=== PATIENT | male | born 1965 | race Two or more races ===

== ENCOUNTER 2021-02-11 09:04 | Outpatient (REF) | payer MEDICAID, SELFPAY ==
--- NOTE | ~2021-02-11 | XR_ITS ---
EXAMINATION: XR SHOULDER, LEFT CLINICAL INFORMATION: Pain. COMPARISON: None TECHNIQUE: AP external rotation, Grashey, scapular Y, and axillary views of the left shoulder. FINDINGS: There is no visible acute fracture, dislocation subluxation. There is degenerative arthritic inferior spurring left AC joint. The soft tissues are normal. XR/XR shoulder LT min 2V IMPRESSION: Mild degenerative arthritic changes left AC joint. No visible acute fracture or dislocation seen.
== END 2021-02-11 09:05 | disposition home or self-care (01) ==
LOC: HO.XRAY 09:04
PROVIDERS: PCP Internal Medicine Geriatric Medicine; Visit Provider Physician Assistant
DX: M75.102 Unspecified rotator cuff tear or rupture of left shoulder, not specified as traumatic (principal)
CPT/HCPCS: 20610; 73030; 99202; J1040

== ENCOUNTER 2022-02-15 09:28 | Outpatient (REF) | payer MEDICAID, SELFPAY ==
--- NOTE | ~2022-02-15 | XR_ITS ---
EXAMINATION: BILATERAL SHOULDER X-RAY CLINICAL INFORMATION: Pain COMPARISON: Previous x-ray November 2016 TECHNIQUE: 4 views of each shoulder FINDINGS: Right: Bone alignment is normal. No fracture or dislocation is seen. The glenohumeral joint is normal. There is arthritis at the acromioclavicular joint. Soft tissues are unremarkable. Left: Bone alignment is normal. No fracture or dislocation is seen. The glenohumeral joint is normal. There is arthritis at the acromioclavicular joint. Soft tissues are unremarkable. XR/XR shoulder RT min 2V IMPRESSION: Arthritis at the acromioclavicular joints.
--- NOTE | ~2022-02-15 | XR_ITS ---
EXAMINATION: BILATERAL SHOULDER X-RAY CLINICAL INFORMATION: Pain COMPARISON: Previous x-ray November 2016 TECHNIQUE: 4 views of each shoulder FINDINGS: Right: Bone alignment is normal. No fracture or dislocation is seen. The glenohumeral joint is normal. There is arthritis at the acromioclavicular joint. Soft tissues are unremarkable. Left: Bone alignment is normal. No fracture or dislocation is seen. The glenohumeral joint is normal. There is arthritis at the acromioclavicular joint. Soft tissues are unremarkable. XR/XR shoulder LT min 2V IMPRESSION: Arthritis at the acromioclavicular joints.
== END 2022-02-15 09:29 | disposition home or self-care (01) ==
LOC: HO.XRAY 09:28
PROVIDERS: PCP Internal Medicine Geriatric Medicine; Visit Provider Physician Assistant
DX: M25.511 Pain in right shoulder (principal); M25.512 Pain in left shoulder
CPT/HCPCS: 73030

== ENCOUNTER → 2023-01-19 10:18 | Outpatient (BNVA) | payer MEDICAID, SELFPAY | PROVIDERS: PCP Internal Medicine Geriatric Medicine; Visit Provider Nurse Practitioner | DX: Z01.818 Encounter for other preprocedural examination (principal) | CPT/HCPCS: 99202 ==

== ENCOUNTER 2023-11-30 08:04 | Outpatient (REF) | payer MEDICAID, SELFPAY ==
[2023-11-30 12:18] LABS: Alanine Aminotransferase 26 U/L (0-40); Albumin Level 4.5 g/dL (3.5-5.0); Alkaline Phosphatase 109 U/L (39-117); Anion Gap 13 (12-20); Aspartate Amino Transferase 23 U/L (5-37); Bilirubin Total 0.4 mg/dL (0.0-1.0); Blood Urea Nitrogen 14 mg/dL (9-16); Calcium 9.3 mg/dL (8.4-10.2); Carbon Dioxide 30 mmol/L (22-29); Chloride 102 mmol/L (96-108); Estimated Glomerular Filt Rate > 60; Glucose Random 108 mg/dL (60-115); Potassium 3.9 mmol/L (3.3-5.1); Sodium 141 mmol/L (135-145); Total Protein 7.4 g/dL (6.5-8.0)
== END 2023-11-30 08:05 | disposition home or self-care (01) ==
LOC: HO.HHCL 08:04
PROVIDERS: Visit Provider Internal Medicine Geriatric Medicine
DX: I10 Essential (primary) hypertension (principal); E78.00 Pure hypercholesterolemia, unspecified
CPT/HCPCS: 36415; 80053

== ENCOUNTER 2023-12-20 12:47 | Outpatient (REF) | payer MEDICAID, SELFPAY ==
--- NOTE | ~2023-12-20 | XR_ITS ---
EXAMINATION: XR LUMBAR SPINE XR RIGHT ELBOW XR LEFT ELBOW CLINICAL INFORMATION: Low back pain at multiple sites, bilateral medial epicondylitis of elbows. TECHNIQUE: 4 views of the lumbar spine. AP and lateral views of the right elbow. AP and 2 lateral views of the left elbow. COMPARISON: Lumbar spine October 03, 2011. FINDINGS: LUMBAR SPINE: Mild dextroscoliosis of the lumbar spine. Degenerative changes and very limited images of the bilateral hips. Facet arthritis in the lower lumbar spine. Minimal grade 1 anterolisthesis of L4 on L5 with moderate loss of disc space height. RIGHT ELBOW: No significant joint effusion. Alignment preserved. No displaced fracture appreciated. LEFT ELBOW: No significant joint effusion. Alignment preserved. No displaced fracture appreciated. Mild hypertrophic change along the medial epicondyle. Tiny olecranon spur with faint soft tissue ossific/calcific densities of indeterminate age and significance. XR/XR elbow LT 2V IMPRESSION: 1. Moderate degenerative disc disease at L4-L5. 2. Facet arthritis in the lower lumbar spine. 3. Mild hypertrophic change along the medial epicondyle of the left elbow. Tiny olecranon spur with faint soft tissue ossific/calcific densities of indeterminate age and significance. 4. Additional imaging with CT scan or MRI should be considered for better visualization as these modalities are much more sensitive for detection of fracture or other underlying pathology.
--- NOTE | ~2023-12-20 | XR_ITS ---
EXAMINATION: XR LUMBAR SPINE XR RIGHT ELBOW XR LEFT ELBOW CLINICAL INFORMATION: Low back pain at multiple sites, bilateral medial epicondylitis of elbows. TECHNIQUE: 4 views of the lumbar spine. AP and lateral views of the right elbow. AP and 2 lateral views of the left elbow. COMPARISON: Lumbar spine October 03, 2011. FINDINGS: LUMBAR SPINE: Mild dextroscoliosis of the lumbar spine. Degenerative changes and very limited images of the bilateral hips. Facet arthritis in the lower lumbar spine. Minimal grade 1 anterolisthesis of L4 on L5 with moderate loss of disc space height. RIGHT ELBOW: No significant joint effusion. Alignment preserved. No displaced fracture appreciated. LEFT ELBOW: No significant joint effusion. Alignment preserved. No displaced fracture appreciated. Mild hypertrophic change along the medial epicondyle. Tiny olecranon spur with faint soft tissue ossific/calcific densities of indeterminate age and significance. XR/XR elbow RT 2V IMPRESSION: 1. Moderate degenerative disc disease at L4-L5. 2. Facet arthritis in the lower lumbar spine. 3. Mild hypertrophic change along the medial epicondyle of the left elbow. Tiny olecranon spur with faint soft tissue ossific/calcific densities of indeterminate age and significance. 4. Additional imaging with CT scan or MRI should be considered for better visualization as these modalities are much more sensitive for detection of fracture or other underlying pathology.
--- NOTE | ~2023-12-20 | XR_ITS ---
EXAMINATION: XR LUMBAR SPINE XR RIGHT ELBOW XR LEFT ELBOW CLINICAL INFORMATION: Low back pain at multiple sites, bilateral medial epicondylitis of elbows. TECHNIQUE: 4 views of the lumbar spine. AP and lateral views of the right elbow. AP and 2 lateral views of the left elbow. COMPARISON: Lumbar spine October 03, 2011. FINDINGS: LUMBAR SPINE: Mild dextroscoliosis of the lumbar spine. Degenerative changes and very limited images of the bilateral hips. Facet arthritis in the lower lumbar spine. Minimal grade 1 anterolisthesis of L4 on L5 with moderate loss of disc space height. RIGHT ELBOW: No significant joint effusion. Alignment preserved. No displaced fracture appreciated. LEFT ELBOW: No significant joint effusion. Alignment preserved. No displaced fracture appreciated. Mild hypertrophic change along the medial epicondyle. Tiny olecranon spur with faint soft tissue ossific/calcific densities of indeterminate age and significance. XR/XR lumbar spine 2-3V IMPRESSION: 1. Moderate degenerative disc disease at L4-L5. 2. Facet arthritis in the lower lumbar spine. 3. Mild hypertrophic change along the medial epicondyle of the left elbow. Tiny olecranon spur with faint soft tissue ossific/calcific densities of indeterminate age and significance. 4. Additional imaging with CT scan or MRI should be considered for better visualization as these modalities are much more sensitive for detection of fracture or other underlying pathology.
== END 2023-12-20 12:48 | disposition home or self-care (01) ==
LOC: HO.HHCX 12:47
PROVIDERS: Visit Provider Internal Medicine Geriatric Medicine
DX: M54.50 Low back pain, unspecified (principal); M77.01 Medial epicondylitis, right elbow; M77.02 Medial epicondylitis, left elbow
CPT/HCPCS: 72100; 73070

== ENCOUNTER → 2023-12-28 07:47 | Day surgery (SDC) | payer MEDICAID, SELFPAY ==
--- NOTE | 2023-12-27 08:23 | HO.ANESPROP2 ---
HPI - Anesthesia Eval Consult details Narrative: 58yo M for Colonoscopy PMFSH Active Problems Active Problems: All Active Problems Colon cancer screening (Acute) Pre-op examination (Acute) Deviated septum (Acute) Chronic sinusitis (Acute) Smoker (Acute) PTSD (post-traumatic stress disorder) (Acute) Depression (Acute) Chronic pain syndrome (Acute) Methadone maintenance therapy patient (Acute) Obesity (Acute) Painful arc syndrome of left shoulder (Acute) Past Medical History Medical History High cholesterol HTN (hypertension) Family History Family History Mother Stomach cancer Father Lung cancer Surgical History Surgical History H/O bilateral inguinal hernia repair H/O colonoscopy Social History Social History (System 12/09/23 @ 09:38 by Flower Kraus) Alcohol intake: never Patient Tobacco Use Status: Current someday Tobacco user Current occupational status: disabled Current occupation: Right Handed Meds Allergies Allergy/AdvReac Type Severity Reaction Status Date / Time No Known Allergies Allergy Verified 12/09/23 09:38 Home Medications ?Medication ?Instructions ?Recorded ?Confirmed ?Last Taken ?Type amlodipine 10 mg tablet 10 mg PO DAILY 01/19/23 Unknown History atorvastatin 40 mg tablet 40 mg PO DAILY 01/19/23 Unknown History lisinopril 40 mg tablet 40 mg PO DAILY 01/19/23 Unknown History Assessment and Plan Assessment Anesthesia Assessment: Chart Reviewed
--- NOTE | 2023-12-28 08:08 | PC.NURSE ---
pt stated to rn he used herion yesterday last night 1 bag and uses 3-[address] george at bedside pt being cancelled pt angry and left cursing security aware
== END ==
PROVIDERS: Visit Provider Internal Medicine Gastroenterology
DX: Z12.11 Encounter for screening for malignant neoplasm of colon (principal); Z53.8 Procedure and treatment not carried out for other reasons; F11.90 Opioid use, unspecified, uncomplicated

== ENCOUNTER 2024-03-13 14:44 | Outpatient (REF) | payer MEDICAID, SELFPAY ==
--- NOTE | ~2024-03-13 | XR_ITS ---
EXAMINATION: XR LUMBOSACRAL SPINE CLINICAL INFORMATION: Pain COMPARISON: CT abdomen and pelvis 09/28/2019 TECHNIQUE: Three views of the lumbosacral spine. FINDINGS: The vertebral bodies and posterior elements are normal. The disc spaces are preserved. Minimal anterolisthesis of L4 on L5.. The paraspinal soft tissues are normal. Mild atherosclerotic calcification in the abdominal aorta. XR/XR lumbar spine 2-3V IMPRESSION: Minimal anterolisthesis of L4 on L5.
--- NOTE | ~2024-03-13 | XR_ITS ---
EXAMINATION: XR KNEE, RIGHT CLINICAL INFORMATION: Months of bilateral knee pain and problems walking COMPARISON: None available. TECHNIQUE: Four views of the right knee. FINDINGS: No fracture or joint effusion. Spurring in the tibial tuberosity. Alignment is anatomic. Joint spaces are maintained. No abnormal soft tissue calcification. XR/XR knee RT 4V IMPRESSION: Spurring in the tibial tuberosity. No acute process.
== END 2024-03-13 14:45 | disposition home or self-care (01) ==
LOC: HO.HHCX 14:44
PROVIDERS: Visit Provider Internal Medicine Geriatric Medicine
DX: M54.50 Low back pain, unspecified (principal); G89.29 Other chronic pain; M25.561 Pain in right knee
CPT/HCPCS: 72100; 73564

== ENCOUNTER 2024-03-25 15:52 | Emergency (ER) | payer MEDICAID, SELFPAY ==
--- NOTE | ~2024-03-25 | CT_ITS ---
EXAMINATION: CT FACIAL BONES WITHOUT CONTRAST CLINICAL INFORMATION: Recurrent sinusitis. COMPARISON: Sinus x-rays September 2018. CT scan August 2016. TECHNIQUE: CT scan of the sinuses performed, reconstruction imaging performed at the acquisition workstation. This CT examination was performed using dose optimization techniques as appropriate, variously including the following: *Automated exposure control *Adjustment of mA and/or kV according to patient size (this includes techniques or standardized protocols for targeted exams where dose is matched to indication/reason for exam; i.e. extremities or head) *Use of iterative reconstruction technique DLP: 187 mGy-cm. FINDINGS: There is mild mucosal thickening of the maxillary sinuses bilaterally. Small mucosal polyps present along the dependent portion of the left maxillary sinus. Small mucosal polyp in the medial aspect of the right maxillary sinus. Mild mucosal thickening of the right ethmoid sinuses. Deviation of the septum to the right. No fractures. Mastoid air cells are clear. Orbits are normal. No lymphadenopathy. Surrounding muscles are normal. Incidental note is made of spondylosis of the upper cervical spine, with multilevel bilateral facet arthrosis noted. CT/CT facial bones wo IV con IMPRESSION: Mild chronic sinus disease. No acute abnormality. Incidental note made of spondylosis of the partially visualized cervical spine.
--- NOTE | ~2024-03-25 | CT_ITS ---
EXAMINATION: CT HEAD WITHOUT CONTRAST CLINICAL INFORMATION: Recurrent sinusitis COMPARISON: CT scan of the head August 2016 TECHNIQUE: Contiguous axial imaging was performed from the skull base to vertex without intravenous administration of contrast. This CT examination was performed using dose optimization techniques as appropriate, variously including the following: *Automated exposure control *Adjustment of mA and/or kV according to patient size (this includes techniques or standardized protocols for targeted exams where dose is matched to indication/reason for exam; i.e. extremities or head) *Use of iterative reconstruction technique DLP: 706 mGy-cm FINDINGS: There is no intracranial mass hemorrhage or cerebral edema. Ventricles and basal cisterns normal. Scalp: Unremarkable. No fracture. Mild mucosal thickening of the right maxillary and right ethmoid sinus similar to prior. Mastoid air cells clear. CT/CT head/brain wo IV con IMPRESSION: No acute intracranial pathology. Mild mucosal thickening of the sinuses
[2024-03-25 16:15] VITALS: BP 114/71; PULSE 77; RESP 18; TEMP 36.6; O2SAT 96; BMI 30.8
[2024-03-25 16:47] LABS: IDNOW Serial# 08D9AD1C; Strep A Nucleic Acid Negative (Negative)
--- NOTE | 2024-03-25 16:48 | ED_ITS ---
HPI - Headache General Chief Complaint: Headache Stated Complaint: head pain and sinus pressure Time Seen by Provider: 03/25/24 16:25 Source: patient Mode of arrival: ambulatory Limitations: no limitations History of Present Illness ED Provider: Abby Guerra APRN HPI Narrative: 59 yo male with history of chronic sinusitis, PTSD, depression, chronic pain here with complaints of intermittent symptoms of sinus pressure/pain for years worsened over the last few months despite several course of antibiotics. Has been sniffing heroin d/t pain. No fevers, chills. +APONTE/pressure. Intermittently using nasal spray, OTC allergy meds. No shortness of breath, chest pain, neck pain/stiffness, vomiting, diarrhea, sore throat, ear pain. Related Data Home Medications ?Medication ?Instructions ?Recorded ?Confirmed amlodipine 10 mg tablet 10 mg PO DAILY 01/19/23 atorvastatin 40 mg tablet 40 mg PO DAILY 01/19/23 lisinopril 40 mg tablet 40 mg PO DAILY 01/19/23 Previous Rx's ?Medication ?Instructions ?Recorded amoxicillin 875 mg-potassium 1 tab PO BID #14 tabs 03/25/24 clavulanate 125 mg tablet fluticasone propionate 50 2 spray intranasal DAILY #16 grams 03/25/24 mcg/actuation nasal spray,suspension (Flonase Allergy Relief) loratadine 10 mg tablet (Claritin) 10 mg PO DAILY #30 tabs 03/25/24 Allergies Allergy/AdvReac Type Severity Reaction Status Date / Time No Known Allergies Allergy Verified 03/25/24 16:21 Review of Systems Review of Systems: Yes all other systems are reviewed and are negative Constitutional: Constitutional: Reports no additional constitutional complaints, Denies body ache(s), Denies chills, Denies fever(s), Reports headache(s) and Denies weakness Eyes: Eyes: Reports no additional eye complaints and Denies change in vision ENT: Reports system reviewed and no additional complaints, except as docu mented, Denies dizziness, Reports headache(s), Denies nasal congestion, Denies nasal discharge, Denies neck pain, Reports sinus pain and Reports sinus pressure Cardiovascular: Cardiovascular: Reports no additional cardiovascular complaints, Denies chest pain, Denies leg edema and Denies dyspnea Respiratory: Respiratory: Reports no additional respiratory complaints, Denies cough and Denies dyspnea Gastrointestinal: Gastrointestinal: Reports no additional gastrointestinal complaints, Denies abdominal pain, Denies diarrhea, Denies nausea and Denies vomiting Genitourinary: Genitourinary: Denies urinary incontinence Musculoskeletal: Musculoskeletal: Reports no additional musculoskeletal complaints, Denies back pain, Denies arthralgias, Denies joint swelling, Denies neck pain, Denies numbness and Denies tingling Integumentary/Breasts: Skin/Breast: Reports system reviewed and no additional complaints, except as docu and Denies rash Neurologic: Reports system reviewed and no additional complaints, except as documented, Denies Abnormal speech present, Denies dizziness, Reports headache(s), Denies numbness, Denies tingling and Denies weakness PMFSH Past Medical History Attestation statement: The following information was validated with the patient. Source: old records reviewed and nursing notes reviewed Medical History High cholesterol HTN (hypertension) Surgical History H/O bilateral inguinal hernia repair H/O colonoscopy Family History Family History Mother Stomach cancer Father Lung cancer Social History Social History Alcohol intake: never Patient Tobacco Use Status: Current someday Tobacco user Advance Directives: No Advance Directives Information Provided: No Do you have a plan to hurt others: No Plan Current occupational status: disabled Current occupation: Right Handed Physical Exam Vital Signs: Vital Signs: Last Vital Signs Temp 98.0 F 03/25/24 21:00 Pulse 99 03/25/24 21:00 Resp 18 03/25/24 21:00 BP 112/79 03/25/24 21:00 Pulse Ox 100 03/25/24 21:00 O2 Del Method Room Air 03/25/24 21:00 BMI result Body Mass Index 30.8 Const: General: cooperative, healthy appearing, comfortable and no acute distress Orientation/consciousness: patient oriented x3 Limitations: no limitations HEENT: Head: Yes normal to inspection Ears: hearing grossly normal bilaterally and TM's normal bilaterally General nose exam: Normal external nose present Face and sinus: Yes normal facial exam, Yes sinus tenderness and Yes other (nasal turbinate erythema/swelling ) Mouth: Normal oral and palatal mucosa present Throat: Yes posterior oropharynx normal, Yes tonsils normal and Yes uvula midline Eyes: General: appearance normal, both eyes and all related structures Pupils: Equal, round and reactive pupils present Neck: Neck: Yes normal visual inspection, Yes full ROM, Yes no lymphadenopathy and Yes no meningeal signs Chest: Chest palpation & inspection: normal inspection of the chest Resp: Effort & Inspection: normal respiratory effort Auscultation: clear to auscultation bilaterally Cardio: Rate: regular rate Rhythm: regular rhythm Peripheral pulses: Peripheral pulses 2+ throughout GI: Inspection: Yes normal to inspection Palpation (GI): Soft to palpation and nontender Auscultation: normal bowel sounds Back/Spine/Pelvis: Thoracic/Lumbar Spine: thoracic and lumbar spine normal to inspection Skin: General skin exam: no rashes or lesions noted Neuro: General: patient oriented x3, no meningeal signs, no focal motor deficits and normal sensation to monofilament Cranial nerves: Yes Equal, round and reactive pupils present Cognition (Neuro): normal cognition Speech: No Abnormal speech present Gait exam (Neuro): Normal gait present Motor exam (neuro): 5/5 motor strength present throughout Extrem: General: Yes normal to inspection Course Course Course Narrative: 1999-Sign out to Jerrod HOBSON pending CT results Reevaluation(s) Reevaluation #1: Patient would like to leave. Facial CT scan results did not come back. Only head CT scan was done with states right maxillary ethmoid sinus thickening confi rming sinusitis. There was no mention on documentation of description of facial bones. Patient informed to wait for official facial CT reading to make sure no fractures. Patient signed out against medical advice and not believe he has a fracture since there was no trauma. Patient explained risk of disability infection and from jaw fracture but patient would like to be discharged before facial CT scan reading. Time: 20:53 Medical Decision Making Medical Decision Making MDM Narrative: 59 yo male with history of chronic sinusitis, PTSD, depression, chronic pain here with complaints of intermittent symptoms of sinus pressure/pain for years worsened over the last few months despite several course of antibiotics. Has been sniffing heroin d/t pain. No fevers, chills. +APONTE/pressure. Intermittently using nasal spray, OTC allergy meds. No shortness of breath, chest pain, neck pain/stiffness, vomiting, diarrhea, sore throat, ear pain. +bilateral nasal turbinate, erythema and swelling Sinus TTP Will obtain viral testing, strep testing, CT Differential Diagnosis Differential Diagnoses: The differential diagnosis associated with the presentation includes Sinusitis, viral infection Admission/Observation Consideration of admission/observation: Escalation of care including admission/observation considered Lab Data MDM Lab Attestation statement: I reviewed the patient's lab results. Labs: Lab Results 03/25/24 03/25/24 Range/Units 16:32 16:33 Influenza Type A (PCR) NEGATIVE (Negative) Influenza Type B (PCR) NEGATIVE (Negative) RSV RNA Qual (PCR) NEGATIVE (Negative) SARS-CoV-2 RNA (RT-PCR) NEGATIVE (Negative) S. pyogenes GrpA SILAS Negative (Negative) Independent Interpretation I performed an independent interpretation of an: CT Scan Radiology Impression Discussion of test interpretation with radiology: I have reviewed the radiologist's reading. Discharge Plan Discharge Clinical Impression: Sinusitis Patient Disposition: Left Against Medical Advice Instructions: Sinusitis (ED) Additional Instructions: Testing for strep, flu, covid and rsv are negative Your CT scan shows XX Prescriptions: New amoxicillin-pot clavulanate 875-125 mg tablet 1 tab PO BID Qty: 14 0RF fluticasone propionate [Flonase Allergy Relief] 50 mcg/actuation spray,suspension 2 spray intranasal DAILY Qty: 16 0RF Rx Instructions: administer into each nostril loratadine [Claritin] 10 mg tablet 10 mg PO DAILY Qty: 30 0RF No Action lisinopril 40 mg tablet 40 mg PO DAILY atorvastatin 40 mg tablet 40 mg PO DAILY amlodipine 10 mg tablet 10 mg PO DAILY Referrals: Moris Bates MD [Primary Care Provider] - 1 week Stand Alone Forms: Against Medical Advice Interventions: ED Discharge Assessment Last Done: 03/25/24 21:00 Discharge Date/Time: 03/25/24 21:01 Print Language: Latvian
[2024-03-25 17:36] LABS: Influenza A PCR NEGATIVE (Negative); Influenza B PCR NEGATIVE (Negative); Resp Syncy Virus RNA Qual PCR NEGATIVE (Negative); SARS COV2 PCR INHOUSE NEGATIVE (Negative)
[2024-03-25 17:44] VITALS: BP 112/79; PULSE 99; RESP 18; TEMP 36.7; O2SAT 100
[2024-03-25 21:00] VITALS: BP 112/79; PULSE 99; RESP 18; TEMP 36.7; O2SAT 100
== END 2024-03-25 21:01 | disposition left against medical advice (07) ==
PROVIDERS: Nurse Practitioner Family; Emergency Provider Emergency Medicine Emergency Medical Services; PCP Internal Medicine Geriatric Medicine
DX: J32.9 Chronic sinusitis, unspecified (principal); R51.9 Headache, unspecified; F11.10 Opioid abuse, uncomplicated; F17.210 Nicotine dependence, cigarettes, uncomplicated; Z03.818 Encounter for observation for suspected exposure to other biological agents ruled out
CPT/HCPCS: 0241U; 70450; 70486; 87651; 99283

== ENCOUNTER 2024-03-26 14:33 | Outpatient (AMB) | payer MEDICAID, SELFPAY ==
--- NOTE | 2024-03-26 14:42 | A.OFFVIS_ITS ---
Vital Signs 03/26/24 14:53 Height 5 ft 6 in Weight 192 lb 2 oz BMI 31.0 BP 110/74 Blood Pressure Location Lt brachial Position Sitting Respiration 16 Pulse 79 Pulse Source Pulse Oximeter Pulse Oximetry (%) 97 Oxygen Delivery Method Room Air Intake Visit Reasons: Chronic Midline Low Back Pain w/o Sciatica Intake Note: Patient comes in for initial visit was referred by primary care. Reports pain 7/10. Allergies No Known Allergies Allergy (Verified 03/26/24 14:55) HPI Comments Details: Balaji is very pleasant 59 years old gentleman who presents in my office with complains of severe pain in projection of the lower lumbar spine. He reports his pain today is 9/10. He reports that sitting aggravates his pain equally as well as walking as well as standing and laying down. Pain radiates to the right leg. He reports that he can not sleep normally he can do activities of daily living, he more or less can take care of himself, he can not function normally. He is on disability for mental illness he reports bipolar disorder. He reports that movements aggravate his pain. He reports that heat helps his pain better. He reports most severe pain in the lower back. In terms of tissue damage he reports his pain is pinching, cramping, crushing, tugging, pulling, wrenching, tingling, stinging, spreading, radiating, piercing, tight, squeezing, tearing sensation. In the past he tried ibuprofen Tylenol and aspirin nothing helps for his pain also reports that opioid medications including tramadol and oxycodone does not help his pain. He reported MRI of his lumbar spine which was done many years ago. He does not remember how long ago it was but more like most likely it was more than 5 years ago. He had extensive physical therapy 7 years ago he reports aggravation of the pain with physical therapy. He was subject of several nerve blocks and procedures with [facility] in [place]. He reports those procedures were very helpful for his pain control. His past medical history significant for bipolar disorder and hypertension. His past surgical history significant for 4 hernia repairs 1st was [place] in [place] and after that in [place] in 2000 as well and after that again in [place] in 2012. He reports that he sporadically smokes cigarettes he denies drinking alcohol he reports caffeinated beverages he denies recreational drugs. [facility] Medical History High cholesterol HTN (hypertension) Surgical History H/O bilateral inguinal hernia repair H/O colonoscopy Family History Mother Stomach cancer Father Lung cancer Social History Alcohol intake: never Patient Tobacco Use Status: Current someday Tobacco user Current occupational status: disabled Current occupation: Right Handed Review of Systems Const Denies fatigue, Denies fever(s), Denies night sweats, Denies poor appetite and Denies weight loss ENT Reports Normal hearing present Card Reports no additional complaints Resp Reports no additional complaints GI Reports no additional complaints Musc Reports as per HPI Neuro Reports Normal hearing present, Denies Abnormal speech present, Denies confusion and Denies Sensory deficit (Neuro) Psych Reports anxiety, Denies confusion and Reports depression Endo Denies fatigue Physical Exam Vital Signs: Last Vital Signs Pulse 79 03/26/24 14:53 Resp 16 03/26/24 14:53 BP 110/74 03/26/24 14:53 Pulse Ox 97 03/26/24 14:53 Oxygen Delivery Method Room Air 03/26/24 14:53 BMI result Body Mass Index 31.0 Const General: no acute distress; No confusion Orientation/consciousness: patient oriented x3 and No confusion Eyes General: appearance normal, both eyes and all related structures Pupils: Equal, round and reactive pupils present EOM: EOMs intact bilaterally Neck Neck: Yes full ROM Chest Chest palpation & inspection: normal inspection of the chest Resp Effort & Inspection: normal respiratory effort, able to speak in complete sentences, normal respiratory pattern, no audible wheezes and no cough Cardio Jugular venous distension: no JVD GI Inspection: Yes normal to inspection Back/Spine/Pelvis Other: He is able to stand on bilateral tiptoes with difficulty as well as able to stand on bilateral heels also with difficulty. SLR is positive bilaterally. Pito test is negative bilaterally. Valsalva maneuver is positive for pain increase. Lessegue test is positive bilaterally. Neuro General: patient oriented x3, gait normal and No confusion Cranial nerves: Yes CN's II-XII intact bilaterally, Yes Equal, round and reactive pupils present, Yes Normal hearing present and Yes Ability to bilaterally elevate shoulders present Speech: No Abnormal speech present Gait exam (Neuro): Normal gait present Motor exam (neuro): 5/5 motor strength present throughout Sensory Exam: No Sensory deficit (Neuro) Extrem General: No pedal edema Psych Speech and movement: Normal speech and movement present Affect: normal affect Attitude: cooperative Thought process: Normal thought process present Thought content: Normal thought content present Insight: Good insight present (Psych) Judgement: Good judgement present (Psych) Assessment & Plan Assessment & Plan (1) Radiculopathy, lumbar region: Code(s): M54.16 - Radiculopathy, lumbar region Category: Medical (2) Disc degeneration, lumbar: Code(s): M51.36 - Other intervertebral disc degeneration, lumbar region Category: Medical (3) Spondylosis of lumbar joint: Code(s): M47.816 - Spondylosis without myelopathy or radiculopathy, lumbar region Category: Medical (4) Chronic pain syndrome: Code(s): G89.4 - Chronic pain syndrome Category: Medical (5) Chronic lumbar pain: Code(s): M54.50 - Low back pain, unspecified; G89.29 - Other chronic pain Category: Medical Plan This patient is suffering from radiculopathy of the lumbar spine. I offered him to go for MRI of the lumbar spine. We will schedule appointment in 6 weeks. I will evaluate his MRI in probably offer him some injections and or procedures to help his pain. Due to his bipolar disorder/depression he might not be appropriate candidate for neuromodulation but that remains to be seen if it is required. Orders: Orders MR lumbar spine wo con Today M47.816 - Spondylosis without myelopathy or radiculopathy, lumbar region, M51.36 - Other intervertebral disc degeneration, lumbar region, M54.16 - Radiculopathy, lumbar region Patient Instructions: I here by testify that I spent 45 minutes in conversation with this patient as well as planning his care and organizing this note. Coding Level of Care Code New Pt Level 4 (71729) Diagnoses Radiculopathy, lumbar region M54.16 Disc degeneration, lumbar M51.36 Spondylosis of lumbar joint M47.816 Chronic pain syndrome G89.4 Chronic lumbar pain M54.50; G89.29
[2024-03-26 14:53] VITALS: BP 110/74; PULSE 79; RESP 16; O2SAT 97; BMI 31.0
== END 2024-03-26 15:08 | disposition home or self-care (01) ==
PROVIDERS: PCP Internal Medicine Geriatric Medicine; Referring Provider Internal Medicine Geriatric Medicine; Visit Provider Anesthesiology
DX: M54.16 Radiculopathy, lumbar region (principal); M51.36 Other intervertebral disc degeneration, lumbar region; M47.816 Spondylosis without myelopathy or radiculopathy, lumbar region; G89.4 Chronic pain syndrome; M54.50 Low back pain, unspecified; G89.29 Other chronic pain
CPT/HCPCS: 99204

== ENCOUNTER → 2024-03-26 14:41 | Outpatient (BNVA) | payer MEDICAID, SELFPAY | PROVIDERS: PCP Internal Medicine Geriatric Medicine; Referring Provider Internal Medicine Geriatric Medicine; Visit Provider Anesthesiology | DX: M47.26 Other spondylosis with radiculopathy, lumbar region (principal); M51.36 Other intervertebral disc degeneration, lumbar region; G89.4 Chronic pain syndrome | CPT/HCPCS: 99202 ==

== ENCOUNTER → 2024-05-20 11:04 | Outpatient (BNV) | payer MEDICAID, SELFPAY | PROVIDERS: PCP Internal Medicine Geriatric Medicine; Visit Provider Radiology Diagnostic Radiology | DX: M47.896 Other spondylosis, lumbar region (principal) | CPT/HCPCS: 72148 ==

== ENCOUNTER 2024-05-20 11:05 | Outpatient (REF) | payer MEDICAID, SELFPAY ==
--- NOTE | ~2024-05-20 | MR_ITS ---
EXAMINATION: MR LUMBAR SPINE WITHOUT CONTRAST CLINICAL INFORMATION: Spondylosis. Bilateral lower extremity pain, weakness and numbness. COMPARISON: Correlated to MRI report dated November 27, 2009. TECHNIQUE: MRI of the lumbar spine was obtained using routine sequences without contrast. FINDINGS: Submitted for interpretation on 06/19/2024. [Last Rib-bearing vertebra labeled T12. There is an extruded disc with cephalad migration beneath the posterior longitudinal ligament at T11-12 resulting in ventral deformity of the spinal cord, not fully evaluated. Bone marrow STIR signal in the posterior elements/lamina and pars interarticularis, L4-5 levels. Multilevel marginal osteophyte formation and disc desiccation more conspicuous at L4-5. Multilevel Schmorl's nodes. Grade 1 anterolisthesis, L4-5. Intrinsic hyperintense T1 bone lesion, L2 vertebra. Conus medullaris ends at inferior endplate of L1 with normal signal. T12-L1: No compression upon neural elements. L1-2: No compression upon neural elements. L2-3: Broad-based disc bulging. Facet joint hypertrophy. No compression upon the neural elements. L3-4: Broad-based disc bulging. Facet joint hypertrophy. No compression upon no elements. L4-5: Grade 1 anterolisthesis. Broad-based disc bulging. Facet joint and ligamentum flavum hypertrophy. Reduced AP diameter of the thecal sac and bilateral neuroforamina narrowing likely encroaching the neural elements. L5-S1: Broad-based disc bulging. Facet joint hypertrophy. No central spinal canal stenosis. Bilateral neuroforamina narrowing encroach in the exiting nerve roots. No prevertebral compartment hematoma, mass or fluid collection. Multifocal, different sizes, round hyperintense T2 lesions throughout the exophytic, renal cortical thinning and parapelvic both kidneys. MR/MR lumbar spine wo con IMPRESSION: Grade 1 anterolisthesis with associated stress fractures both lamina, resulting in central spinal canal and bilateral neuroforamina stenosis, L4-5. Instability cannot be excluded. Spondylosis, L5-S1 encroaching the exiting nerve roots. Concerning extruded disc with cephalad migration at T11-12. Bilateral renal cysts. Electronically signed by: Pavel Ayala MD 06/19/2024 01:13 PM EDT
== END 2024-05-20 11:06 | disposition home or self-care (01) ==
LOC: HO.MRI 11:05
PROVIDERS: PCP Internal Medicine Geriatric Medicine; Visit Provider Anesthesiology
DX: M47.816 Spondylosis without myelopathy or radiculopathy, lumbar region (principal); M51.36 Other intervertebral disc degeneration, lumbar region; M54.16 Radiculopathy, lumbar region
CPT/HCPCS: 72148

== ENCOUNTER 2024-12-27 09:01 | Outpatient (REF) | payer MEDICAID, SELFPAY ==
--- OUTSIDE RECORDS SUMMARY | 2024-12-27 09:30 | XMS_ITS | Encounter Summary ---
Author Organization [employer] Address [address] [place] [address] Care Team Providers Care Park Guide Name Role Phone Name, Moris SIMMS Primary Care Provider [phone] Reason for Visit * Reason Onset Date Comments triage 11/25/2022 Encounter Details Date Type Department Care Team (Late st Contact Info) Description 11/25/2022 Telephone [facility] [address] [place], [place] [phone] Name, MD Moris [address] [place], [place] [phone] triage Social History Tobacco Use Types Packs/Day Years Used Date Smoking Tobacco: Never Smokeless Tobacco: Never Sex and Gender Information Value Date Recorded Sex Assigned at Male 06/21/2022 10:17 AM EDT Legal Sex Male 10:17 AM EDT Gender Identity Male 06/21/2022 10:17 AM EDT Sexual Orientation Don't know 06/21/2022 10 :17 AM EDT COVID-19 Exposure Response Date Recorded In the last 10 days, have yo u been in contact with someone who was confirmed or suspected to have Coronavirus/COVID-19? No / Unsure 11/09/2022 10:50 AM EDT documented as of this encounter Miscellaneous Notes * Telephone Encounter - Bette Sylvester RN - 11/26/2022 4:06 PM EDT TC x1 to pt regarding message below. LVM to return call to nurses. Will forward to PCP as FYI. * Telephone Encounter - Ade Wright RN - 11/25/2022 12:37 PM EDT Call to Balaji Medrano, reports having rectal swelling and pain. Pt had bleeding yesterday and today. With large blood clots. Pt reports having pain in rectum up to tresticles and to lower abdominal pain. Per pt just wants to referral to GI provider as is due for colonoscopy. Pt advised thatdue to having these concerning sx pt should be evaluated in ER. Pt declines, states I will not go to ER. Pt advised of risks and that referral request to be sent but PCP is out of office so covering will have to review. Pt verbalized understanding Sent to team for status check PRN. Protocol Used: Rectal Bleeding (Adult) Protocol-Based Disposition: Go to ED Now Positive Triage Question: * Moderate rectal bleeding (small blood clots, passing blood without stool, or toilet water turns red) more than once a day * All higher-acuity triage questions were negative Care Advice Discussed: * Reassurance and Education - Mild Rectal Bleeding * Reasons To Call Back - Bleeding increases in amount - You become worse * Telephone Encounter - Jennifer Daniels - 11/25/2022 11:59 AM EDT Symptom: Rectal Bleeding Outcome: Schedule an urgent appointment (within 1 hour) or talk to a nurse or provider soon Reason: No high acuity concerns reported by caller The caller accepted this outcome Pt would like a referral. documented in this encounter Plan of Treatment Upcoming Encounters Date Type Department Care Team (Late st Contact Info) Description 03/04/2025 11:00 AM EDT Office Visit [facility] [address] [place] [address] Name, MD Moris [address] [place] [address] documented as of this encounter Visit Diagnoses Not on filedocumented in this encounter Care Teams Park Guide Relationship Specialty Start Date End Date Name, MD Moris [address] [place] [address] PCP - General Family Medicine 10/28/15 documented as of this encounter
[2024-12-27 11:46] LABS: Alanine Aminotransferase 22 U/L (0-40); Albumin Level 4.5 g/dL (3.5-5.0); Alkaline Phosphatase 81 U/L (39-117); Anion Gap 11 (12-20); Aspartate Amino Transferase 26 U/L (5-37); Bilirubin Total 0.3 mg/dL (0.0-1.0); Blood Urea Nitrogen 12 mg/dL (9-16); Calcium 9.8 mg/dL (8.4-10.2); Carbon Dioxide 32 mmol/L (22-29); Chloride 103 mmol/L (96-108); Cholesterol 173 mg/dL (<200); Estimated Glomerular Filt Rate > 60; Glucose Random 97 mg/dL (60-115); HDL Cholesterol 39 mg/dL (>40); LDL Cholesterol Calculated 104 mg/dL (<100); Potassium 4.3 mmol/L (3.3-5.1); Sodium 142 mmol/L (135-145); Total Protein 7.2 g/dL (6.5-8.0); Triglycerides 150 mg/dL (<150)
== END 2024-12-27 09:02 | disposition home or self-care (01) ==
LOC: HO.HHCL 09:01
PROVIDERS: Visit Provider Internal Medicine Geriatric Medicine
DX: I10 Essential (primary) hypertension (principal)
CPT/HCPCS: 36415; 80053; 80061

== ENCOUNTER 2025-07-11 09:22 | Outpatient (REF) | payer MEDICAID, SELFPAY ==
[2025-07-11 11:10] LABS: MANUAL DIFF FLAG NO
[2025-07-11 11:19] LABS: Hematocrit 40.1 % (42.0-52.0); Hemoglobin 13.4 g/dl (14.0-18.0); Imm Gran Abs Auto 0.02 X10*3/uL (0.00-0.03); Imm Gran Pct Auto 0.2 % (0.0-0.4); Lymphocytes Absolute Auto 2.3 X10*3/uL (1.2-4.9); Mean Corpuscular HGB Conc 33.4 g/dl (31.0-36.0); Mean Corpuscular Hemoglobin 28.5 pg (27.0-33.0); Mean Corpuscular Volume 85.1 fL (80.0-98.0); NRBC Abs Auto 0.000 X10*3/uL (0.0-0.012); NRBC Pct Auto 0.0 /100WBC (0.0-0.2); Platelet Count 352 X10*3/uL (160-400); Red Blood Count 4.71 X10*6/uL (4.60-5.80); White Blood Count 11.9 X10*3/uL (4.8-10.8)
[2025-07-11 11:56] LABS: Alanine Aminotransferase 18 U/L (0-40); Albumin Level 4.8 g/dL (3.5-5.0); Alkaline Phosphatase 91 U/L (39-117); Anion Gap 12 (12-20); Aspartate Amino Transferase 24 U/L (5-37); Blood Urea Nitrogen 14 mg/dL (9-16); Calcium 9.4 mg/dL (8.4-10.2); Carbon Dioxide 31 mmol/L (22-29); Chloride 103 mmol/L (96-108); Cholesterol 218 mg/dL (<200); Estimated Glomerular Filt Rate > 60; HDL Cholesterol 37 mg/dL (>40); Potassium 3.9 mmol/L (3.3-5.1); Sodium 142 mmol/L (135-145); Total Protein 7.4 g/dL (6.5-8.0); Triglycerides 122 mg/dL (<150)
--- OUTSIDE RECORDS SUMMARY | 2025-07-11 12:15 | XMS_ITS | Data Portability ---
Author Organization [place] [facility], [facility] Address [address] [place] [id number] Care Team Providers Care Cake Winder Name Role Phone MIKE GARNER Referring Provider [phone] Assessment Encounter Date Assessment Date Assessment LastModified by Organization Details LastModified Time 06/18/2025 06/18/2025 Balaji Medrano is a 60-year-old male with nasal septal deviation causing right-sided nasal blockage and complaints of chronic nasal pressure left greater than right. Endoscopy does not show any polyps or colored nasal discharge. Near complete obstruction of the right side due to septal deviation The patient will be prescribed antibiotics to address any potential infection contributing to his symptoms. A CAT scan of the sinuses will be ordered to further evaluate the nasal anatomy and any underlying pathology. The patient is advised to return for follow-up in approximately four to five weeks to review imaging results and discuss further management options. Continue fluticasone nasal spray FOLLOW-UP: The patient is scheduled to return in approximately four to five weeks for follow-up with Dr. Hernandez. [email or web address] Not available 06/18/2025 14:29:38 Plan of Treatment Reminders Order Date Submit Date Provider Last Modified By Organization Details Last Modified Time Details Appointments CT Scan 2024 01:30P M [facility] Not available Not available Not available Establish ed 15 2024 02:15P Reid Hernandez, DO Not available Not available Not available Lab None recorded. Referral None recorded. Procedures None recorded. Surgeries None recorded. Imaging None recorded. Medication Orders doxycycli ne hyclate 100 mg tablet 2024 025 [id number], [address] [place], [place], [id number], 07/09/2025 05:01:51 Patient TargetsNo targets recorded. Patient Instructions Encounter Date Encounter Id Patient Instructions Last Modified By Organization Details Last Modified Time 06/18/2025 [id number] Take prescribed antibiotics as directed. Return for follow-up in approximately four to five weeks. Undergo a CAT scan of the sinuses as ordered. [email or web address] [email or web address] Not available 06/18/2025 14:27:10 Please note: Parts of this encounter note have been generated by AI based on audio conversation. Patient consent was required prior to utilizing this technology. Content review was required prior to finalizing the note. [email or web address] Not available 06/18/2025 14:27:10 Reason for Referral None Reported. Problems Name Problem SNOMED Code Status Onset Date Resolution Date Notes Provider Name and Address Organization Details Recorded Time Deviated nasal septum 452301224 Active 025 TAJ BRIGGS MD [address] [place] [address], [place], [phone], [facility] 5 14:28:44 Chronic rhinitis 82078431 Active 025 TAJ BRIGGS MD [address] [place] [address], [place], [phone], [facility] 5 14:28:45 Chronic sinusitis 56387996 Active 025 TAJ BRIGGS MD [address] [place] [address], [place], [address], [facility] - [facility] 5 14:28:51 Pain in face 14017827 Active 025 TAJ BRGIGS MD [address] [place] [address], [place], [address], [facility] 5 14:28:57 Problem Notes None recorded. Procedures Surgical History Date Name Laterality Status Provider Name and Address Organization Details Recorded Time JMSNasal/Sinus Endoscopy completed TAJ LINK MD [address] [place] [address], [phone], [place] - [facility] 06/18/2025 14:30:18 Imaging Results None recorded. Procedure Notes None recorded. Medical Equipment None Reported. Allergies No known drug allergies Medications Name Sig Start Date Stop Date Status Note LastModified by Organization Details LastModified Time atorvastati n 40 mg tablet TAKE 1 TABLET BY MOUTH EVERY DAY active Not Available Not Available No t Available sucralfate 1 gram tablet active Not Available Not Available Not Available prednisone 20 mg tablet active Not Available Not Available Not Available amoxicillin 500 mg tablet TAKE 1 TABLET BY MOUTH EVERY 8 HOURS FOR 7 DAYS 06/15 completed Not Available Not Available Not Available diphenhydra mine 25 mg tablet TAKE 1 TABLET BY MOUTH NEEDED AT BEDTIME FOR ITCHING active Not Available Not Available No t Available omeprazole 20 mg capsule,del ayed release active Not Available Not Available Not Available fluticasone propionate 50 mcg/actuati on nasal spray,suspe nsion ADMINISTE R 2 SPRAYS IN EACH NOSTRIL ONCE PER DAY active Not Available Not Available No t Available doxycycline hyclate 100 mg tablet Take 1 tablet twice a day by oral route for 14 days. 07/09 completed Not Available Not Available Not Available naproxen 500 mg tablet active Not Available Not Available Not Available amoxicillin 875 mg-potassiu m clavulanate 125 mg tablet TAKE 1 TABLET BY MOUTH TWICE DAILY FOR 10 DAYS 06/15 completed Not Available Not Available Not Available cyclobenzap rine 5 mg tablet active Not Available Not Available Not Available amlodipine 10 mg-valsarta n 320 mg tablet TAKE 1 TABLET BY MOUTH DAILY active Not Available Not Available No t Available Vitals Date Recorded Body height Body mass index (BMI) Body weight Systolic And Diastolic Provider Name and Address Organization Details Last Updated DateTime 06/18/2025 167.64 cm 30 kg/m2 72957.18 g 170/110 mm[Hg] JAMIE CHAVEZ [place] - [facility] 06/18/2025 14:20:28 Social History None recorded. Functional Status None recorded. Mental Status None recorded. Family History Nothing Reported. Medical History No medical history recorded. Past Encounters Encounter ID Performer Location Encounter Start Date Encounter Closed Date Diagnosis/Indication Diagnosis SNOMED-CT Code Diagnosis ICD10 Code Diagnosis IMO Codes Diagnosis Note [id number] TAJ LOPES MD [facility] [address] [place] [address] 06/18/2025 13:37:41 06/18/2025 14:31:05 Deviated nasal septum 249843937 J34.2 30473 Chronic rhinitis 4304684 6 J31.0 2545 Chronic sinusitis 768235 00 J32.8 92435 Pain in face 41803680 R5 1.9 35761 Health Concerns Section Related Observation LastModified by Organization Detai ls LastModified Time None Recorded Concern Status LastModified by Organization Details LastModified Time None Recorded Advance Directives Directive None Recorded Payers Insurance Date Sequence Insurance Name Policy Number Policy Blackwell Covered Member ID Blackwell Member ID Guarantor Name 06/18/2025 1 [place] [facility] Balaji Medrano [id number] Balaji Medrano Notes Date Note Type Note Provider Name and Address Organization Details Recorded Time 06/18/2025 text/html Balaji Medrano is a 60-year-old male who presents for evaluation of nasal pressure, which is worse on the left side compared to the right. The patient denies having undergone any prior imaging studies, such as CAT scans or radiographs. He reports no history of antibiotic use or other medications for this condition, although he has used a nasal spray in the past. The patient denies any history of cocaine use. An sales and marketing representative was present during the visit to assist with communication. TOEX=[id number] TAJ LINK MD [address] [place] [address], [place], [address], [facility] - [facility] 06/18/2025 14:30:38
--- OUTSIDE RECORDS SUMMARY | 2025-07-11 12:15 | XMS_ITS | Encounter Summary ---
Author Organization [employer] Address [address] [place] [address] [address] [place] [address] Care Team Providers Care Bull Riveter Name Role Phone Name, Moris SIMMS Primary Care Provider [phone] Reason for Visit * Reason Comments Med Refill Encounter Details Date Type Department Care Team ([facility] st Contact Info) Description 03/07/2025 Refill [facility] [address] [place], [place] [phone] Name, MD Moris [address] [place], [place] [phone] Seasonal allergic rhinitis due to other allergic trigger Social History Tobacco Use Types Packs/Day Years Used Date Smoking Tobacco: Some Days Cigarettes Smokeless Tobacco: Never Alcohol Use Standard Drinks/Week Comments Never 0 (1 standard drink = 0.6 oz pur e alcohol) Alcohol Answer Date Recorded Frequency of Alcohol Consumption Not on file 03/08/2024 Average Number of Drinks Not on file 024 Frequency of Binge Drinking Not on file 02/19 Score 0 03/08/2024 Depression Answer Date Recorded Patient Health Questionnaire-9 Score 20 10/29/2024 Patient Health Questionnaire-9 Score 20 10/29/2024 Last PHQ-9: Questionnaire Data Not on file 0 10/29/2024 Housing Stability Answer Date Recorded What is your housing situation today? I have evangelist oliver 12/08/[address] you li ve. Do you have problems with any of the following? None of the above 12/08/2023 Food Insecurity Answer Date Recorded Within the past 12 months, y ou worried that your food would run out before you got money to buy more: Never True 12/08/2023 Within the past 12 months,th e food you bought just didn't last and you didn't have enough money to get more: Never True Transportation Answer Date Recorded In the past 12 months, has l ack of transportation kept you from medical appts, meetings, work or from getting things needed for daily living? No 12/08/2023 Utilities Answer Date Recorded In the past 12 months, has t he electric, gas, oil or water company threatened to shut off services in your home? No 12/08/2023 Depression Answer Date Recorded Patient Health Questionnaire-2 Score 3 10/29/2024 Sex and Gender Information Value Date Recorded Sex Assigned at Male 06/21/2022 10:17 AM EDT Legal Sex Male 10:17 AM EDT Gender Identity Male 06/21/2022 10:17 AM EDT Sexual Orientation Don't know 06/21/2022 10 :17 AM EDT documented as of this encounter Plan of Treatment Not on file documented as of this encounter Visit Diagnoses Diagnosis Seasonal allergic rhinitis due to other allergic trigger documented in this encounter Additional Health Concerns Assessment Noted Time PHQ-9 Depression Total Score: 20 025 2:19 PM EDT documented as of this encounter Care Teams Bull Riveter Relationship Specialty Start Date End Date Name, MD Morsi [address] [place] [address] PCP - General Family Medicine 10/28/15 documented as of this encounter
--- OUTSIDE RECORDS SUMMARY | 2025-07-11 12:15 | XMS_ITS | Encounter Summary ---
Author Organization [employer] Address [address] [place] [address] 7[address] [place] [address] Care Team Providers Care Forestry Patrolman Name Role Phone Name, Moris SIMMS Primary Care Provider [phone] Reason for Visit * Reason Comments Med Refill Encounter Details Date Type Department Care Team ([facility] st Contact Info) Description 06/22/2025 Refill [facility] [address] [place], [place] [phone] Name, MD Moris [address] [place], [place] [phone] Seasonal allergic rhinitis due to other allergic [...] housing situation today? I have evangelist oliver 06/26/[address] you li ve. Do you have problems with any of the following? None of the above 06/26/2025 Food Insecurity Answer Date Recorded Within the past 12 months, y ou worried that your food would run out before you got money to buy more: Never True 06/26/2025 Within the past 12 months,th e food you bought just didn't last and you didn't have enough money to get more: Never True 12/2024 Transportation Answer Date Recorded In the past 12 months, has l ack of transportation kept you from medical appts, meetings, work or from getting things needed for daily living? No 06/26/2025 Utilities Answer Date Recorded In the past 12 months, has t he electric, gas, oil or water company threatened to shut off services in your home? No 06/26/2025 Depression Answer Date Recorded Patient Health Questionnaire-2 Score 3 10/29/2024 Internet Access Answer Date Recorded Internet Access Q1 Yes 06/26/2025 Internet Access Q2 Not on file 06/26/2025 Sex and Gender Information Value Date Recorded [...] documented as of this encounter Care Teams Forestry Patrolman Relationship Specialty Start Date End Date Name, MD Moris [address] [place] [address] PCP - General Family Medicine 10/28/15 documented as of this encounter
--- OUTSIDE RECORDS SUMMARY | 2025-07-11 12:15 | XMS_ITS | Continuity of Care Document ---
Author Organization [place] [facility], [facility] Address [address] [place] [address] Care Team Providers Care Big Data Platform Architect Name Role Phone PATSY, MIKE Referring Provider [phone] Assessment Encounter Date Assessment Date Assessment LastModified [...] five weeks for follow-up with Dr. Hernandez. [email or web address] Not available 06/18/2025 14:29:38 Plan of Treatment Reminders Order Date Submit Date Provider Last Modified By Organization Details Last Modified Time Details Appointments CT Scan 2024 01:30P M [facility] Not available Not available Not available Establish ed 15 2024 02:15P Reid Hernandez DO Not available Not available Not available Lab None recorded. Referral None recorded. Procedures None recorded. Surgeries None recorded. Imaging None recorded. Medication Orders doxycycli ne hyclate 100 mg tablet 2024 025 [id number], [address] [place], [place], [phone], 07/09/2025 05:01:51 Patient TargetsNo targets recorded. Patient Instructions Encounter Date Encounter Id Patient Instructions Last Modified By Organization Details Last Modified Time 06/18/2025 [id number] Take prescribed antibiotics as directed. Return for follow-up in approximately four to five weeks. Undergo a CAT scan of the sinuses as ordered. [email or web address] Not available 06/18/2025 14:27:10 Please note: Parts [...] Organization Details Recorded Time Deviated nasal septum 961798183 Active 025 TAJ BRIGGS MD [address] [place] [address], [phone], [facility] - [facility] 14:28:44 Chronic rhinitis 19577114 Active 025 TAJ BRIGGS MD [address] [place] [address], [phone], [facility] - [facility] 14:28:45 Chronic sinusitis 69977110 Active 025 TAJ BRIGGS MD [address] [place] [address], [phone], [facility] 14:28:51 Pain in face 59793031 Active 025 TAJ BRIGGS MD [address] [place] [address], [phone], [facility] 14:28:57 Problem Notes None recorded. Procedures Surgical History Date Name Laterality Status Provider Name and Address Organization Details Recorded Time JMSNasal/Sinus Endoscopy completed TAJ LINK MD [address] [place] [address], [phone], [place] - [facility] 06/18/2025 14:30:18 Imaging Results None recorded. [...] Updated DateTime 06/18/2025 167.64 cm 30 kg/m2 85825.18 g 170/110 mm[Hg] JAMIE CHAVEZ [place] - [facility] 06/18/2025 14:20:28 Social History None recorded. Functional Status None recorded. Mental Status None recorded. Family History Nothing Reported. Medical History No medical history recorded. Past Encounters Encounter ID Performer Location Encounter Start Date Encounter Closed Date Diagnosis/Indication Diagnosis SNOMED-CT Code Diagnosis ICD10 Code Diagnosis IMO Codes Diagnosis Note [id number] TAJ LOPES MD [facility] [address] [place] [address] 06/18/2025 13:37:41 06/18/2025 14:31:05 Deviated nasal septum 317889728 J34.2 93639 Chronic rhinitis 1035973 6 J31.0 2545 Chronic sinusitis 238935 00 J32.8 67434 Pain in face 67890664 R5 1.9 29296 Health Concerns Section Related Observation LastModified by Organization Detai ls LastModified Time None Recorded Concern Status LastModified by Organization Details LastModified Time None Recorded Payers Encounter Date Sequence Insurance Name Policy Number Policy Blackwell Covered Member ID Blackwell Member ID Guarantor Name 06/18/2025 1 [place] [facility] Balaji Medrano [id number] Balaji Medrano Notes Date Note Type Note [...] denies any history of cocaine use. An landscape technician was present during the visit to assist with communication. [id number] TAJ LINK MD [address] [place] [address], [place], [address], [facility] - [facility] 06/18/2025 14:30:38
--- OUTSIDE RECORDS SUMMARY | 2025-07-11 12:15 | XMS_ITS | Encounter Summary ---
Author Organization [email or web address] Address [address] [place] [address] [address] [place] [address] Care Team Providers Care Tin Container Straightener Name Role Phone Name, Moris SIMMS Primary Care Provider [phone] Reason for Visit * Reason Onset Date Comments triage 11/25/2022 Encounter Details Date Type Department Care Team (Late st Contact Info) Description 11/25/2022 Telephone [facility] [address] [place], [place] [phone] Name, MD Moris [address] [place], [place] [phone] triage Social History Tobacco Use Types Packs/Day [...] documented in this encounter Plan of Treatment Not on file documented as of this encounter Visit Diagnoses Not on filedocumented in this encounter Care Teams Tin Container Straightener Relationship Specialty Start Date End Date Name, MD Moris [address] [place] [address] PCP - General Family Medicine 10/28/15 documented as of this encounter
--- OUTSIDE RECORDS SUMMARY | 2025-07-11 12:15 | XMS_ITS | Encounter Summary ---
Author Organization [employer] Address [address] [facility] [address]t [place] [address] Care Team Providers Care Support Assistant Name Role Phone Name, Moris SIMMS Primary Care Provider [phone] Reason for Visit * Reason Comments Med Refill Encounter Details Date Type Department Care Team ([facility] st Contact Info) Description 05/10/2025 Refill [facility]INE [address] [place], [place] [phone] Name, MD Moris [address] [place], [place] [phone] Social History Tobacco Use Types Packs/Day Years [...] Diagnoses Not on filedocumented in this encounter Additional Health Concerns Assessment Noted Time PHQ-9 Depression Total Score: 20 025 2:19 PM EDT documented as of this encounter Care Teams Support Assistant Relationship Specialty Start Date End Date Name, MD Moris [address] [place] [address] PCP - General Family Medicine 10/28/15 documented as of this encounter
--- OUTSIDE RECORDS SUMMARY | 2025-07-11 12:15 | XMS_ITS | Clinical Summary ---
Author Organization [employer] Address [address] [facility] [address] [place] [address] Care Team Providers Care Software Computer Specialist Name Role Phone Name, Moris SIMMS Primary Care Provider Allergies No known active allergies Medications * This document contains information received from the source organization and may not represent a complete record from that organization. naloxone (Narcan) 4 mg/0.1 mL nasal spray CALL 911. SPR CONTENTS OF ONE SPRAYER (0.1ML) INTO ONE NOSTRIL. REPEAT IN 2-3 MIN IF SYMPTOMS OF OPIOID EMERGENCY PERSIST, ALTERNATE NOSTRILS 06/02/20 22 Active Diclofenac Sodium 1 % gel Apply once a day to the affected elbow 100 g 1 12/08/19 24 Active loratadine (Claritin) 10 MG tabletIndicatio ns:Chronic sinusitis, unspecified location Take 1 tablet (10 mg) by mouth Once per day. 30 tablet 11 05/11/20 24 Active naproxen (Naprosyn) 500 MG tablet TAKE 1 TABLET(500 MG) BY MOUTH TWICE DAILY 60 tablet 12/12/19 25 Active sucralfate (Carafate) 1 g tablet Take 1 tablet (1 g) by mouth before breakfast, before lunch, before evening meal, and at bedtime. 120 tablet 11 01/31/20 25 026 Active Omeprazole 20 MG tablet delayed-release Take 1 tablet (20 mg) by mouth Once per day. 30 tablet 03/04/20 25 Active fluticasone (Flonase) 50 MCG/ACT nasal sprayIndication s:Chronic rhinitis Shake gently. Before first use, prime pump. After use, clean tip and replace cap. 48 g 2 06/26/20 25 Active amLODIPine-Vals elisha-HCTZ 10-320-25 MG tabletIndicatio ns:Essential hypertension One tablet once a day 30 tablet 3 06/26/20 25 Active zolpidem (Ambien) 5 MG tablet Take 1 tablet (5 mg) by mouth if needed at bedtime for sleep. 30 tablet 06/26/20 25 026 Active atorvastatin (Lipitor) 40 MG tabletIndicatio ns:High cholesterol Take 1 tablet by mouth every day 90 tablet 1 06/26/20 25 Active busPIRone (Buspar) 10 MG tabletIndicatio ns:Anxiety Take 1 tablet (10 mg) by mouth 2 times daily. 60 tablet 11 09/07/19 23 025 Discontinued(I neffective) baclofen (Lioresal) 20 MG tablet Take 1 tablet (20 mg) by mouth 2 times daily. 60 tablet 06/13/20 24 025 Discontinued(T herapy completed) amLODIPine-vals elisha (Exforge) 10-320 MG tablet TAKE 1 TABLET BY MOUTH DAILY 90 tablet 3 07/27/20 24 025 Discontinued(I neffective) diphenhydrAMINE (BENADryl) 25 MG tablet Take 1 tablet (25 mg) by mouth if needed at bedtime for itching. 30 tablet 01/29/20 25 025 Discontinued(T herapy completed) atorvastatin (Lipitor) 40 MG tabletIndicatio ns:High cholesterol Take 1 tablet by mouth every day 90 tablet 1 01/29/20 25 025 Discontinued(R eorder (will not trigger notification to Pharmacy)) cyclobenzaprine (Flexeril) 5 MG tablet Take 1 tablet (5 mg) by mouth 3 times daily for 10 days. 30 tablet 01/31/20 25 025 Discontinued(T herapy completed) fluticasone (Flonase) 50 MCG/ACT nasal sprayIndication s:Seasonal allergic rhinitis due to other allergic trigger Administer 2 sprays into each nostril Once per day. Shake gently. Before first use, prime pump. After use, clean tip and replace cap. 16 g 2 03/04/20 25 025 Discontinued fluticasone (Flonase) 50 MCG/ACT nasal sprayIndication s:Seasonal allergic rhinitis due to other allergic trigger ADMINISTER 2 SPRAYS INTO EACH NOSTRIL ONCE DAILY. SHAKE GENTLY, BEFORE FIRST USE, PRIME PUMP. 48 g 06/20/20 25 025 Discontinued(R eorder (will not trigger notification to Pharmacy)) Active Problems Problem Noted Date Diagnosed Date Colon cancer screening 10/26/2024 Painful arc syndrome of left shoulder 10/26/2024 Pre-op examination 10/26/2024 Smoker 10/26/2024 Chronic sinusitis 05/11/2024 Assessment & Plan (05/11/2024 3:43 PM EDT): Chronic sinusitis with recurrent acute exacerbations. Has been on nasal steroids and abx in the past. 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 what other family member is going to ). He presents with little interest in doing things, feeling hopeless/depressed, trouble falling and staying asleep, overeating, no motivation, feels as he is a failure, trouble concentrating, becoming more fidgety than normal, and thoughts he be better off . Today, Balaji denies SI and HI. Balaji also experiences panic attacks, nightmares, isolation, and hypervigilance. Presentation in the context of history of trauma. Patient will benefit from both OP therapy and psychopharmacology referrals. Patient declined both at this time. At this time Balaji Medrano meets criteria for Visit Diagnoses: Problem List Items Addressed This Visit Nervous Opioid dependence with opioid-induced mood disorder (CMS/HCC) Other Anxiety Posttraumatic stress disorder Patient ready to address current needs No Strengths include unable to assess PLAN: 1. Follow up with [facility]: Not recommended for follow-up 2. Patient goal: No goal was established 3. Behavioral Recommendations a. Patient may request to speak to a C during next PCP visit, if needed b. Patient will utilize [facility], if needed Kidney stone 11/04/2017 Chronic pain syndrome 11/29/2016 Shoulder pain 11/29/2016 Anxiety 03/18/2016 Assessment & Plan (06/09/2023 10:23 AM EDT): Balaji continues to experience lost of pleasure doing things, depressed mood, sleep disturbance, lack of energy, poor appetite, guilt, trouble concentrating, slowed movement and speech, thoughts of ending life. He also reports feeling anxious, worrisome, trouble relaxing, restless, irritability, fearfulness. Balaji declines referral for psychiatric medication. He reports follow ups have not been beneficial. Declines to continue meeting with another therapist. Agreed to call crisis if needed. Balaji has my number, agrees to call me if needed for support Ext. [phone]. At this time Balaji Medrano meets criteria for Visit Diagnoses: Problem List Items Addressed This Visit Other Anxiety Posttraumatic stress disorder Severe episode of recurrent major depressive disorder, without psychotic features (CMS/HCC) Patient ready to address current needs No Strengths include family supports, working on recovery, coping mechanisms PLAN: 1. Follow up with [facility]: Recommended for follow-up: Balaji declined 2. Patient goal is to manage symptoms 3. Behavioral Recommendations a. Referral to [facility] b. Reach out for support c. [employer] OP therapy Essential hypertension 03/18/2016 Assessment & Plan (01/30/2025 6:21 PM EDT): Patient very anxious throught the visit, told to check blood pressure at home, keep bp log, for PCP follow up Assessment & Plan (05/11/2024 3:46 PM EDT): BP is elevated, pt reports he has BP monitor and recently saw PCP. -recommended continuing monitoring at home and f/u with PCP later this month. Inguinal pain 03/18/2016 Chest pain 12/19/2015 Resolved Problems Problem Noted Date Diagnosed Date Resolved Date Depression 03/18/2016 10/29/2024 Assessment & Plan (05/26/2023 11:28 AM EDT): Balaji reports symptoms have been exacerbated, due to losing his brother and son to suicide. He reports many years ago, attempting to end his life. Balaji presents with passive SI, but reports At this point in my life I don't dare to take my own life . Balaji reports lost of pleasure doing things, depressed mood, sleep disturbance, lack of energy, poor appetite, guilt, trouble concentrating, slowed movement and speech, thoughts of ending life. He also reports feeling anxious, worrisome, trouble relaxing, restless, irritability, fearfulness. Reports recent substance use due to exacerbated symptoms. administered, PHQ9- score of 27 and SATURNINO-7-score of 21. Last PHQ9 and SATURNINO-7 were conducted 02/09; scores remain the same. At this time Balaji Medrano meets criteria for Visit Diagnoses: Problem List Items Addressed This Visit Nervous Opioid dependence with opioid-induced mood disorder (CMS/HCC) Other Anxiety Depressive disorder Posttraumatic stress disorder Patient ready to address current needs Yes Strengths include Willingness to engage, determination, reaches out for support PLAN: 1. Follow up with [facility]: Recommended for follow-up: 06/01 @11am 2. Patient goal is to manage symptoms 3. Behavioral Recommendations a. Reach out for support b. Identify triggers c. Call crisis if needed Encounters Date Type Department Care Team Description 06/26/2025 11:15 AM EST Office Visit [facility] [address] [place] [phone] Name, MD Moris Essential hypertension (Primary Dx); High cholesterol; Chronic rhinitis; Chronic insomnia 06/26/2025 Travel 06/25/2025 Telephone [facility] [address] [place] [phone] Maria Luisa Raphael MA chart prep 06/22/2025 Refill [facility] [address] [place] [phone] NameMoris MD Seasonal allergic rhinitis due to other allergic trigger 06/19/2025 Refill [facility] [address] [place] [address] Name, MD Moris Seasonal allergic rhinitis due to other allergic trigger 05/10/2025 Refill [facility] [address] [place] [address] Name, MD Moris from Last 3 Months Social History Tobacco Use Types Packs/Day Years Used Date Smoking Tobacco: Some Days Cigarettes Smokeless Tobacco: Never Tobacco Cessation:Ready to Q uit: Not Asked; Counseling Given: Not Answered Alcohol Use Standard Drinks/Week Comments Never 0 [...] Don't know 06/21/2022 10 :17 AM EDT Last Filed Vital Signs Vital Sign Reading Time Taken Comments Blood Pressure 146/95 06/26/2025 11:29 AM EST Pulse 86 06/26/2025 11:16 AM EST Temperature 36.1 C (97 F) 06/26/2025 11:16 AM EST Respiratory Rate 18 06/26/2025 11:16 AM EST Oxygen Saturation 97% 06/26/2025 11:16 AM EST Inhaled Oxygen Concentration - - Weight 85.5 kg (188 lb 6.4 oz) 06/26/2025 11:16 AM EST Height 167.6 cm (5' 6 ) 06/26/2025 11:16 AM EST Body Mass Index 30.41 06/26/2025 11:16 AM EST Plan of Treatment Health Maintenance Due Date Last Done Comments CT Colonography 1967 Colonoscopy 1967 Colorectal Cancer Screening 1967 FIT DNA/Cologuard 1967 FIT 1967 FOBT 1967 HIV Screening 1967 Sigmoidoscopy 1967 Hepatitis C Screening 1985 DTaP/Tdap/Td Vaccines (1 - Tdap) 1986 Hepatitis B Vaccines (1 of 3 - 19+ 3-dose series) 1986 Pneumococcal Vaccine: 50+ Years (1 of 2 - PCV) 1986 Zoster Vaccines (1 of 2) 2017 COVID-19 Vaccine (3 - season) 2025 07/07/2021, 01/01/2021 Influenza Vaccine (#1) 2025 Depression Monitoring 05/01/2025 10/29/2024, 025 Alcohol/Substance Use Screening 10/29/2025 10/29/2024 Disability Screening 03/04/2026 03/04/2025 SDOH Screening 06/26/2026 06/26/2025 Tobacco Screening 06/26/2026 06/26/2025 Lipid Panel 07/11/2030 07/11/2025, 05/0 03/2025, 02/15/2022, Additional history exists RSV Patients and Patients Aged 60 years or older (1 - 1-dose 75+ series) 2042 HIB Vaccines Aged Out No longer eligi ble based on patient's age to complete this topic HPV Vaccines Aged Out No longer eligi ble based on patient's age to complete this topic Hepatitis A Vaccines Aged Out No long er eligible based on patient's age to complete this topic IPV Vaccines Aged Out No longer eligi ble based on patient's age to complete this topic Meningococcal B Vaccine Aged Out No l onger eligible based on patient's age to complete this topic Meningococcal Vaccine Aged Out No samantha olman eligible based on patient's age to complete this topic RSV under 20 months Aged Out No longe r eligible based on patient's age to complete this topic Rotavirus Vaccines Aged Out No longer eligible based on patient's age to complete this topic Procedures Procedure Name Priority Date/Time Associated Diagnosis Comments LIPID PANEL, STANDARD Routine 07/11/2025 9:27 AM EST High cholesterol COMPREHENSIVE METABOLIC PANEL Routine 07/11/2025 9:27 AM EST Essential hypertension CBC WITH AUTO DIFFERENTIAL Routine 07/11/2025 9:27 AM EST Seasonal allergic rhinitis due to other allergic trigger from Last 3 Months Results * (ABNORMAL) CBC auto differential (07/11/2025 9:27 AM EST) White Blood Count 11.9(H) 4.8 - 10.8 X10*3/uL [facility] Red Blood Count 4.71 4.60 - 5.80 X10*6/uL [facility] Hemoglobin 13.4(L) 14.0 - 18.0 g/dl [facility] Hematocrit 40.1(L) 42.0 - 52.0 % [facility] Mean Corpuscular Volume 85.1 80.0 - 98.0 fL [facility] Mean Corpuscular Hemoglobin 28.5 27.0 - 33.0 pg [facility] Mean Corpuscular HGB Conc 33.4 31.0 - 36.0 g/dl [facility] Red Cell Distribution Width 12.4 11.0 - 16.0 % [facility] Platelet Count 352 160 - 400 X10*3/uL [facility] Mean Platelet Volume 9.1(L) 9.4 - 12.4 fL [facility] Neutrophils Percent Auto 70.4 45 - 73 % [facility] Imm Gran Pct Auto 0.2 0.0 - 0.4 % [facility] Lymphocytes Percent Auto 19.0(L) 20 - 40 % [facility] Monocytes Percent Auto 6.2 2 - 11 % [facility] Eosinophils Percent Auto 3.8 0 - 4 % [facility] Basophils Percent Auto 0.4 0 - 2 % [facility] NRBC Pct Auto 0.0 0.0 - 0.2 /100WBC [facility] Neutrophils Absolute Auto 8.4(H) 2.0 - 8.3 x10*3/uL [facility] Imm Gran Abs Auto 0.02 0.00 - 0.03 X10*3/uL [facility] Lymphocytes Absolute Auto 2.3 1.2 - 4.9 X10*3/uL [facility] Monocytes Absolute Auto 0.7 0.1 - 1.2 X10*3/uL [facility] Eosinophils Absolute Auto 0.5(H) 0.0 - 0.4 X10*3/uL [facility] Basophils Absolute Auto 0.1 0.0 - 0.2 X10*3/uL [facility] NRBC Abs Auto 0.000 0.0 - 0.012 X10*3/uL [facility] Blood Venous blood specimen / Unknown 07/11/2025 9:27 AM EST 07/11/2025 11:07 AM EST us Moris Bates MD LAB BLOOD ORDERABLES Final Resul t [facility] [address] [place] [address] [phone] * (ABNORMAL) Lipid Panel, Standard (07/11/2025 9:27 AM EST) Triglycerides 122 <150 mg/dL [facility] Comment:Desirable Triglyceri de: less than 150 mg/dLBorderline High Triglyceride 150-199 mg/dLHigh Triglyceride: 200-499 mg/dLVery High Triglyceride: greater than or equal to 5OO mg/dL Cholesterol 218(H) <200 mg/dL [facility] Comment:Desirable Cholestero l: less than 200 mg/dLBorderline High Cholesterol: 200-239 mg/dLHigh Cholesterol: greater than 239 mg/dL LDL Cholesterol Calculated 157(H) <100 mg/dL [facility] Comment:Desirable LDL: less than 100 mg/dLNear Optimal/Above Optimal LDL: 110- 129 mg/dLBorderline High LDL: 130-159 mg/dLHigh LDL: 160-189 mg/dLVery High LDL: greater than or equal to 190 mg/dL HDL Cholesterol 37(L) >40 mg/dL [facility] Comment:Desirable HDL: great er than 40 mg/dL Note: This HDL assay may give artificially low results in patients with liver disease. Blood Venous blood specimen / Unknown 07/11/2025 9:27 AM EST 07/11/2025 11:07 AM EST us Moris Name LAB BLOOD ORDERABLES Final Resul t [facility] [address] [place] [phone] * (ABNORMAL) Comprehensive Metabolic Panel (07/11/2025 9:27 AM EST) Sodium 142 135 - 145 mmol/L [facility] Potassium 3.9 3.3 - 5.1 mmol/L [facility] Chloride 103 96 - 108 mmol/L [facility] Carbon Dioxide 31(H) 22 - 29 mmol/L [facility] Anion Gap 12 12 - 20 [facility] Urea Nitrogen (BUN) 14 9 - 16 mg/dL [facility] Creatinine, Serum 0.79 0.5 - 1.4 mg/dL [facility] Estimated Glomerular Filt Rate >60 [facility] Comment:Chronic Kidney Disea se: Estimated GFR < 60 mL/min/[id number] Kidney Disease: Estimated GFR < 15 mL/min/1.73m2 Glucose 102 60 - 115 mg/dL [facility] Calcium 9.4 8.4 - 10.2 mg/dL [facility] Bilirubin, Total 0.3 0.0 - 1.0 mg/dL [facility] Aspartate Amino Transferase 24 5 - 37 U/L [facility] Alanine Aminotransferase 18 0 - 40 U/L [facility] Total Protein 7.4 6.5 - 8.0 g/dL [facility] Albumin Level 4.8 3.5 - 5.0 g/dL [facility] Alkaline Phosphatase 91 39 - 117 U/L [facility] Blood Venous blood specimen / Unknown 07/11/2025 9:27 AM EST 07/11/2025 11:07 AM EST us Moris Name LAB BLOOD ORDERABLES Final Resul t [facility] [address] [place] [phone] from Last 3 Months Insurance [facility] C[facility] Care Teams Software Computer Specialist Relationship Specialty Start Date End Date Name, MD Moris [address] [place] [phone] PCP - General Family Medicine 10/28/15
== END 2025-07-11 09:23 | disposition home or self-care (01) ==
LOC: HO.HHCL 09:22
PROVIDERS: PCP Internal Medicine Geriatric Medicine; Visit Provider Internal Medicine Geriatric Medicine
DX: I10 Essential (primary) hypertension (principal); E78.00 Pure hypercholesterolemia, unspecified; J32.9 Chronic sinusitis, unspecified
CPT/HCPCS: 36415; 80053; 80061; 85025